=== PATIENT | male | born 1995 ===

== ENCOUNTER 2020-05-09 20:51 | Observation (INO) | payer BC ==
--- NOTE | 2020-05-09 21:13 | Event Note ---
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 Further treatment and workup at subsequent clinical providers discretion. Patient/guardian urged not to elope from the ED as their condition may be serious if not clinically assessed and managed. Initial orders include: labs,uds,ua,cxr
[2020-05-09 21:42] LABS: Basophils # (Auto) 0.1 K/mm3 (0.0-0.1); Basophils % (Auto) 0.4 % (0.0-1.8); Eosinophils # (Auto) 0.2 K/mm3 (0.0-0.4); Eosinophils % (Auto) 1.1 % (0.0-4.3); Hematocrit 47.4 % (35.5-45.6); Hemoglobin 15.9 gm/dl (11.8-15.2); Lymphocytes % (Auto) 13.7 % (13.4-35.0); Mean Corpuscular HGB Conc 34 % (32-34); Mean Corpuscular Volume 82 fl (84-94); Monocytes # (Auto) 0.6 K/mm3 (0.0-0.8); Monocytes % (Auto) 3.8 % (0.0-7.3); Platelet Count 363 K/mm3 (140-440); Red Blood Count 5.78 M/mm3 (3.65-5.03); Red Cell Distribution Width 14.4 % (13.2-15.2)
[2020-05-09 21:51] LABS: INR 1.02 (0.87-1.13)
[2020-05-09 21:52] LABS: Partial Thromboplastin Time 24.1 Sec. (24.2-36.6)
[2020-05-09 21:57] LABS: Alanine Aminotransferase 42 units/L (7-56); Albumin 4.6 g/dL (3.9-5); BUN/Creatinine Ratio 10; Blood Urea Nitrogen 9 mg/dL (9-20); Calcium 9.9 mg/dL (8.4-10.2); Hemolysis Index 16
[2020-05-09] MEDS ORDERED: SODIUM CHLORIDE 0.9% 1000 ML 1,000 ML IV ONE (22:52)
[2020-05-09] MEDS ORDERED: CEFEPIME/NS 2 GM/100 ML 2 GM/100 ML BAG IV ONE (22:53)
--- NOTE | 2020-05-09 22:58 | Emergency Department Report ---
ED Syncope HPI - General Chief Complaint: Altered Mental Status Stated Complaint: Syncope Time Seen by Provider: 05/09/20 22:51 Source: patient, EMS Exam Limitations: no limitations - History of Present Illness Initial Comments: Patient is a 24-year-old male that presents emergency room with complaints of syncopal episode versus a seizure activity. Patient states he was hanging out with some friends and he became unresponsive and the friend stated that he appeared to be shaking. Patient was brought in by EMS. Report received from EMS. Patient states he is having chest pain. Patient denies shortness of breath. Patient denies fever and chills. Patient denies head injury. Patient denies trauma. Patient states he is was a little confused when he initially arrived here. Patient has a history of Erlers Danlos syndrome, vascular type and the patient brought a letter from [facility]. Letter is from his [facility] physician/transportation dispatch manager. The letter recommends that if the patient has any type of chest pain or neurologic symptoms that angiogram studies be done of the chest and neck as well as a head CT to rule out any type of vascular compromise or rupture. Patient denies recent travel. Patient denies recent international travel. Patient denies exposure to the novel coronavirus. Patient denies sick contacts. Patient denies fever and chills. Patient denies cough. Patient denies diarrhea. Patient denies coming in contact with anybody with symptoms of the novel coronavirus. Timing/Prior Episodes: single episode today Precipitating Factors: Positive: lightheadedness, pain Context: standing Loss of Consciousness: brief (seconds) Current Symptoms: chest pain, headache, weakness. denies: blurred vision, diaphoresis, dizziness, injury, lightheadedness, loss of bladder control, loss of bowel control, motionless, nausea, pale - Related Data Allergies/Adverse Reactions: Allergies No Known Allergies Allergy (Unverified 05/09/20 22:11) Home Medications: Ambulatory Orders Ascorbic Acid [Vitamin C] 500 mg PO TID 05/10/20 Cholecalciferol Vit D3 [Vitamin D3 1,000 UNIT TAB] 1 tab PO QDAY 05/10/20 Citalopram [celeXA] 20 mg PO QDAY 05/10/20 Methadone [Dolophine] 1.5 tab PO BID 05/10/20 Metoclopramide [Reglan TAB] 1 tab PO TID 05/10/20 Mirtazapine [Remeron 15mg TAB] 15 mg PO QHS 05/10/20 PANTOPRAZOLE SODIUM (nf) [Protonix GRANULES] 40 mg PO BID 05/10/20 Pregabalin 150 mg PO BID 05/10/20 carvediloL [Coreg] 3.125 mg PO BID 05/10/20 ED Review of Systems ROS: Stated complaint: PUI/CLIVE Other details as noted in HPI Constitutional: malaise. denies: chills, fever Eyes: denies: eye pain, eye discharge, vision change ENT: denies: ear pain, throat pain Respiratory: denies: cough, shortness of breath, wheezing Cardiovascular: chest pain. denies: palpitations Endocrine: no symptoms reported Gastrointestinal: denies: abdominal pain, nausea, diarrhea Genitourinary: denies: urgency, dysuria Musculoskeletal: denies: back pain, joint swelling, arthralgia Skin: denies: rash, lesions Neurological: as per HPI, headache, weakness, confusion. denies: paresthesias Psychiatric: denies: anxiety, depression Hematological/Lymphatic: denies: easy bleeding, easy bruising ED Past Medical Hx - Past Medical History Previous Medical History?: Yes Additional medical history: EDS, colostomy - Surgical History Past Surgical History?: Yes Additional Surgical History: ACL repair - Family History Family history: no significant - Social History Smoking Status: Former Smoker Substance Use Type: Alcohol, Marijuana - Medications Home Medications: Home Medications Medication Instructions Recorded Confirmed Last Taken Type Ascorbic Acid [Vitamin C] 500 mg PO TID 05/10/20 05/10/20 Unknown History Cholecalciferol Vit D3 [Vitamin D3 1 tab PO QDAY 05/10/20 05/10/20 Unknown H istory 1,000 UNIT TAB] Citalopram [celeXA] 20 mg PO QDAY 05/10/20 05/10/20 Unknown History Methadone [Dolophine] 1.5 tab PO BID 05/10/20 05/10/20 Unknown History Metoclopramide [Reglan TAB] 1 tab PO TID 05/10/20 05/10/20 Unknown History Mirtazapine [Remeron 15mg TAB] 15 mg PO QHS 05/10/20 05/10/20 Unknown History PANTOPRAZOLE SODIUM (nf) [Protonix 40 mg PO BID 05/10/20 05/10/20 Unknown History GRANULES] Pregabalin 150 mg PO BID 05/10/20 05/10/20 Unknown History carvediloL [Coreg] 3.125 mg PO BID 05/10/20 05/10/20 Unknown History ED Physical Exam - General Limitations: No Limitations General appearance: alert, in no apparent distress - Head Head exam: Present: atraumatic, normocephalic - Eye Eye exam: Present: normal appearance, PERRL Pupils: Present: normal accommodation - ENT ENT exam: Present: mucous membranes moist - Neck Neck exam: Present: normal inspection - Respiratory Respiratory exam: Present: normal lung sounds bilaterally. Absent: respiratory distress - Cardiovascular Cardiovascular Exam: Present: regular rate, normal rhythm. Absent: systolic murmur, diastolic murmur, rubs, gallop - GI/Abdominal GI/Abdominal exam: Present: soft, normal bowel sounds. Absent: distended, tenderness, guarding - Rectal Rectal exam: Present: deferred - Extremities Exam Extremities exam: Present: normal inspection - Back Exam Back exam: Present: normal inspection - Neurological Exam Neurological exam: Present: alert, oriented X3 - Psychiatric Psychiatric exam: Present: normal affect, normal mood - Skin Skin exam: Present: warm, dry, intact, normal color. Absent: rash ED Course Vital Signs 05/09/20 05/09/20 05/09/20 21:08 23:15 23:16 Temperature 97.9 F 98.3 F Pulse Rate 113 H 104 H Respiratory 22 16 Rate Blood Pressure 110/76 Blood Pressure 115/67 [Left] O2 Sat by Pulse 94 100 98 Oximetry 05/10/20 05/10/20 05/10/20 00:35 01:35 02:04 Temperature Pulse Rate Respiratory 16 16 16 Rate Blood Pressure Blood Pressure [Left] O2 Sat by Pulse Oximetry 05/10/20 05/10/20 05/10/20 02:07 03:04 03:29 Temperature 98.1 F Pulse Rate 102 H Respiratory 19 16 16 Rate Blood Pressure Blood Pressure 115/77 [Left] O2 Sat by Pulse 100 Oximetry 05/10/20 05/10/20 03:59 04:43 Temperature 97.9 F Pulse Rate 96 H Respiratory 16 16 Rate Blood Pressure Blood Pressure 107/98 [Left] O2 Sat by Pulse 100 Oximetry - Reevaluation(s) Reevaluation #1: Patient complaining of chest pain. Patient will given 50 mcg fentanyl. 05/10/20 00:21 Reevaluation #2: Patient received a second dose of fentanyl and he states his pain is better. I discussed all results with patient. I discussed plan of care with patient. Patient agrees with plan of care but states he would like to be transferred to [facility] where he is had all of his care for his EDS. I will consult [facility]. 05/10/20 02:21 Reevaluation #3: I discussed all results with patient. I discussed plan of care with patient. Patient agrees with plan of care and admission since [facility] is unable to accept the patient at this time.. Patient to be admitted to the hospitalist service. 05/10/20 03:19 Reevaluation #4: Patient complaining of nausea and vomiting. Patient already given 4 mg Zofran per patient was given another 4 mg of Zofran and 25 mg of Phenergan [place] 05/10/20 04:18 Reevaluation #5: Patient resting comfortably in bed. 05/10/20 05:18 - Consultations Consultation #1: I discussed the case with [facility]. 05/10/20 02:29 [facility] returned our call and states I do not have any beds for possible COVID or PUI patient. 05/10/20 03:19 Consultation #2: Infectious disease consult placed. 05/10/20 03:22 Consultation #3: Hospitalist consulted for admission. Hospitalist to admit patient. 05/10/20 05:05 ED Medical Decision Making - Lab Data Result diagrams: 05/09/20 21:19 05/09/20 21:19 - EKG Data -: EKG Interpreted by [facility] EKG shows normal: sinus rhythm, axis, intervals, QRS complexes, ST-T waves Rate: tachycardia - Radiology Data Radiology results: report reviewed CT head/brain wo con INDICATION: Altered Mental Status. TECHNIQUE: Routine CT head without contrast. All CT scans at this location are performed using CT dose reduction for ALARA by means of automated exposure control. COMPARISON: None. FINDINGS: BRAIN / INTRACRANIAL CONTENTS: No acute hemorrhage, mass effect, midline shift, or hydrocephalus. No appreciable acute large territorial or lacunar infarct. No chronic infarct or focal atrophy. Normal brain volume and ventricular/sulcal size for age. ORBITS: No significant abnormality of visualized orbits. SINUSES / MASTOIDS: No significant abnormality of visualized sinuses and mastoid air cells. ADDITIONAL FINDINGS: None. IMPRESSION: 1. No acute intracranial abnormality. CHEST 1 VIEW INDICATION / CLINICAL INFORMATION: AMS. COMPARISON: None available. FINDINGS: SUPPORT DEVICES: None. HEART / MEDIASTINUM: No significant abnormality. LUNGS / PLEURA: There is a 6.7 cm masslike density in the right lung base of uncertain etiology. Small right pleural effusion is noted. Additionally, there is parenchymal disease throughout both upper lobes. No pneumothorax. ADDITIONAL FINDINGS: No significant additional findings. IMPRESSION: 1. Large mass projecting within the right inferior lung with associated small right pleural effusion. Although this could represent some type of pericardial mass or cyst, the exact etiology is unclear and further evaluation with chest CT scan should be performed. 2. Patchy bilateral upper lobe pulmonary opacities of uncertain etiology but certainly viral pneumonia is within the differential. CTA ABDOMEN AND PELVIS WITH IV CONTRAST INDICATION / CLINICAL INFORMATION: Syncope, chest pains. EDS. TECHNIQUE: Axial CT images were obtained through the abdomen and pelvis before and after after injection of 100 mL IV contrast. 3 plane MIP / 3D reconstructions were produced. All CT scans at this location are performed using CT dose reduction for ALARA by means of automated exposure control. COMPARISON: None available. FINDINGS: CT abdomen shows no acute finding within the liver, spleen, pancreas, kidneys, or adrenal glands. No gallbladder pathology identified. No biliary dilatation. CT pelvis demonstrates normal appearance of the appendix. No pelvic mass, free fluid, or focal inflammatory change noted. Left lower quadrant colostomy is noted. GI tract is grossly unremarkable otherwise. Aorta: No significant abnormality. Renal arteries: No significant abnormality. Celiac artery: No significant abnormality. Superior Mesenteric Artery: No significant abnormality. Inferior mesenteric artery: No significant abnormality. Right Iliac Arteries: No significant abnormality.. Left Iliac Arteries: No significant abnormality.. Additional Findings: None. Skeletal Structures: No significant abnormality. IMPRESSION: 1. No acute finding within the abdomen or pelvis. 2. Normal CTA abdomen/pelvis. CTA CHEST WITH IV CONTRAST INDICATION / CLINICAL INFORMATION: Syncope, chest pains. EDS. TECHNIQUE: Axial CT images were obtained through the chest after injection of 100 mL IV contrast. 3 plane MIP and/or 3D reconstructions were produced. All CT scans at this location are performed using CT dose reduction for ALARA by means of automated exposure control. COMPARISON: None available. FINDINGS: PULMONARY ARTERIES: No pulmonary emboli. THORACIC AORTA: No significant abnormality. HEART: No significant abnormality. CORONARY ARTERIES: No significant calcification. PLEURA: Small bilateral pleural effusions are present, slightly larger on the right. No pneumothorax. LYMPH NODES: No significant adenopathy. LUNGS: There is a fluid-filled cystic mass in the right lower lobe measuring approximately 7 cm.. The mass is benign and may represent bronchogenic cyst, or loculated effusion. Additionally, pulmonary opacities are present scattered throughout both upper lobes and to a lesser degree, both lower lobes. The appearance is certainly worrisome for multifocal viral pneumonia. ADDITIONAL FINDINGS: None. UPPER ABDOMEN: No acute findings. SKELETAL STRUCTURES: No significant osseous abnormality. IMPRESSION: 1. No CT evidence for pulmonary embolism. 2. Multiple small bilateral pulmonary opacities most likely representing multifocal viral pneumonia. 3. 7 cm cystic mass in the right lower lobe possibly representing either loculated effusion or bronchogenic cyst. 3. Small bilateral pleural effusions. - Medical Decision Making Patient is a 24-year-old male that presents emergency room with complaints of chest pain, syncope versus seizure activity. Patient has a history of EDS and brought a letter from [facility]. The letter states that if the patient presents with neurologic symptoms or complaints or pain in the abdomen or chest that a CT angiography needs to be done to rule out any type of vascular compromise. Patient had labs done which were essentially unremarkable except for elevated WBC, lactic acidosis, elevated troponin. Patient had CTA of the chest and abdomen which were negative for acute findings. Patient CT of the chest did show bilateral viral appearing pneumonia. Patient's most likely has COVID-19. Infectious disease consulted and COVID-19 protocol ordered. Personal protective equipment in accordance with CDC and hospital pull through use during every interaction with patient. Patient's head CT was negative. Patient's EKG is negative. Patient complained of severe chest pain throughout his stay in the ER. Patient also had bouts of nausea and vomiting. Patient was given antiemetics which which improved his nausea. - Differential Diagnosis Headache, seizure activity, syncope, chest pain, PE, vascular compromise Critical Care Time: Yes Critical care time in (mins) excluding proc time.: 80 Critical care attestation.: If time is entered above; I have spent that time in minutes in the direct care of this critically ill patient, excluding procedure time. Critical Care Time: 80 minutes ED Disposition Clinical Impression: Seizure-like activity, EDS (Vincelos syndrome), Lactic acid acidosis, Elevated troponin I level, Viral pneumonia, Suspected COVID-19 virus infection Chest pain Qualifiers: Chest pain type: unspecified Qualified Code(s): R07.9 - Chest pain, unspecified Headache Qualifiers: Headache type: unspecified Headache chronicity pattern: acute headache Intractability: not intractable Qualified Code(s): R51 - Headache Syncope Qualifiers: Syncope type: unspecified Qualified Code(s): R55 - Syncope and collapse Pneumonia Qualifiers: Pneumonia type: due to unspecified organism Laterality: bilateral Lung location: unspecified part of lung Qualified Code(s): J18.9 - Pneumonia, unspecified organism Disposition: -09 OP ADMIT IP TO THIS HOSP Is pt being admited?: Yes Does the pt Need Aspirin: No Condition: Critical Time of Disposition: 05:05
--- NOTE | 2020-05-09 22:58 | Cat Scan Report ---
CT head/brain wo con INDICATION: Altered Mental Status. TECHNIQUE: Routine CT head without contrast. All CT scans at this location are performed using CT dos e reduction for ALARA by means of automated exposure control. COMPARISON: None. FINDINGS: BRAIN / INTRACRANIAL CONTENTS: No acute hemorrhage, mass effect, midline shift, or hydrocephalus. No appreciable acute large territorial or lacunar infarct. No chronic infarct or focal atrophy. Normal b rain volume and ventricular/sulcal size for age. ORBITS: No significant abnormality of visualized orbits. SINUSES / MASTOIDS: No significant abnormality of visualized sinuses and mastoid air cells. ADDITIONAL FINDINGS: None. IMPRESSION: 1. No acute intracranial abnormality. Signer Name: Jailyn Lewis MD Signed: 05/09/2020 10:53 PM Workstation Name: [id number]
--- NOTE | 2020-05-09 23:19 | XRay Report ---
CHEST 1 VIEW INDICATION / CLINICAL INFORMATION: AMS. COMPARISON: None available. FINDINGS: SUPPORT DEVICES: None. HEART / MEDIASTINUM: No significant abnormality. LUNGS / PLEURA: There is a 6.7 cm masslike density in the right lung base of uncertain etiology. Smal l right pleural effusion is noted. Additionally, there is parenchymal disease throughout both upper l obes. No pneumothorax. ADDITIONAL FINDINGS: No significant additional findings. IMPRESSION: 1. Large mass projecting within the right inferior lung with associated small right pleural effusion. Although this could represent some type of pericardial mass or cyst, the exact etiology is unclear a nd further evaluation with chest CT scan should be performed. 2. Patchy bilateral upper lobe pulmonary opacities of uncertain etiology but certainly viral pneumoni a is within the differential. Signer Name: Nu Millan MD Signed: 05/09/2020 11:14 PM Workstation Name: [id number]
[2020-05-09 23:42] LABS: Creatine Kinase MB 9.2 ng/mL (0.0-4.0)
[2020-05-10] MEDS ORDERED: fentaNYL 100 MCG/2 ML INJ IV ONE ×3 (00:18→05:07)
[2020-05-10 00:53] LABS: Bilirubin,Urine NEG (Negative); Blood,Urine SM (Negative); Color,Urine Straw (Yellow); Mucus,Urine FEW /HPF; Urobilinogen,Urine < 2.0 mg/dL (<2.0)
[2020-05-10 01:02] LABS: Amphetamine Screen,Urine PRESUMPTIVE NEGATIVE; Benzodiazepines Screen,Urine PRESUMPTIVE NEGATIVE; Cannabinoid Screen,Urine PRESUMPTIVE NEGATIVE; Cocaine Screen,Urine PRESUMPTIVE NEGATIVE; Methadone Screen,Urine PRESUMPTIVE POSITIVE; Opiate Screen,Urine PRESUMPTIVE NEGATIVE
--- NOTE | 2020-05-10 01:53 | Cat Scan Report ---
CTA CHEST WITH IV CONTRAST INDICATION / CLINICAL INFORMATION: Syncope, chest pains. EDS. TECHNIQUE: Axial CT images were obtained through the chest after injection of 100 mL IV contrast. 3 plane MIP an d/or 3D reconstructions were produced. All CT scans at this location are performed using CT dose redu ction for ALARA by means of automated exposure control. COMPARISON: None available. FINDINGS: PULMONARY ARTERIES: No pulmonary emboli. THORACIC AORTA: No significant abnormality. HEART: No significant abnormality. CORONARY ARTERIES: No significant calcification. PLEURA: Small bilateral pleural effusions are present, slightly larger on the right. No pneumothorax. LYMPH NODES: No significant adenopathy. LUNGS: There is a fluid-filled cystic mass in the right lower lobe measuring approximately 7 cm.. The mass is benign and may represent bronchogenic cyst, or loculated effusion. Additionally, pulmonary o pacities are present scattered throughout both upper lobes and to a lesser degree, both lower lobes. The appearance is certainly worrisome for multifocal viral pneumonia. ADDITIONAL FINDINGS: None. UPPER ABDOMEN: No acute findings. SKELETAL STRUCTURES: No significant osseous abnormality. IMPRESSION: 1. No CT evidence for pulmonary embolism. 2. Multiple small bilateral pulmonary opacities most likely representing multifocal viral pneumonia. 3. 7 cm cystic mass in the right lower lobe possibly representing either loculated effusion or bronch ogenic cyst. 3. Small bilateral pleural effusions. Signer Name: Nu Millan MD Signed: 05/10/2020 1:48 AM Workstation Name: [id number]
--- NOTE | 2020-05-10 01:57 | Cat Scan Report ---
CTA ABDOMEN AND PELVIS WITH IV CONTRAST INDICATION / CLINICAL INFORMATION: Syncope, chest pains. EDS. TECHNIQUE: Axial CT images were obtained through the abdomen and pelvis before and after after injection of 100 mL IV contrast. 3 plane MIP / 3D reconstructions were produced. All CT scans at this location are per formed using CT dose reduction for ALARA by means of automated exposure control. COMPARISON: None available. FINDINGS: CT abdomen shows no acute finding within the liver, spleen, pancreas, kidneys, or adrenal glands. No gallbladder pathology identified. No biliary dilatation. CT pelvis demonstrates normal appearance of the appendix. No pelvic mass, free fluid, or focal inflam matory change noted. Left lower quadrant colostomy is noted. GI tract is grossly unremarkable otherwi se. Aorta: No significant abnormality. Renal arteries: No significant abnormality. Celiac artery: No significant abnormality. Superior Mesenteric Artery: No significant abnormality. Inferior mesenteric artery: No significant abnormality. Right Iliac Arteries: No significant abnormality.. Left Iliac Arteries: No significant abnormality.. Additional Findings: None. Skeletal Structures: No significant abnormality. IMPRESSION: 1. No acute finding within the abdomen or pelvis. 2. Normal CTA abdomen/pelvis. Signer Name: Nu Millan MD Signed: 05/10/2020 1:53 AM Workstation Name: [id number]
[2020-05-10 02:44] LABS: Chol/HDL Ratio 5.5 %
[2020-05-10] MEDS ORDERED: ONDANSETRON 4 MG/2 ML INJ ONE (02:55)
[2020-05-10] MEDS ORDERED: ONDANSETRON 4 MG/2 ML INJ IV ONE ×2 (03:01→04:20)
[2020-05-10] MEDS ORDERED: AZITHROMYCIN 500 MG in SODIUM CHLORIDE 0.9% 250ML 250 ML IV ONE (03:20)
[2020-05-10] MEDS ORDERED: dexAMETHasone 4 MG/ML VIAL IV ONE (03:20)
[2020-05-10] MEDS ORDERED: SODIUM CHLORIDE 0.9% 1000 ML 1,000 ML IV ONE (03:20)
[2020-05-10] MEDS ORDERED: HYDROmorphone 1 MG/1 ML INJ IV ONE (03:21)
[2020-05-10] MEDS ORDERED: PROMETHAZINE 25 MG RECT SUPP PR ONE ×2 (04:17→04:19)
[2020-05-10] MEDS ORDERED: fentaNYL 100 MCG/2 ML INJ ONE (05:05)
[2020-05-10] MEDS ORDERED: ACETAMINOPHEN 325 MG TAB PO PRN (08:00)
--- NOTE | 2020-05-10 09:06 | History and Physical Report ---
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 Of note patient admits to current weekly EtOH use (liquor 1-2 times per week), being a former smoker (1 to 2 cigarettes/day x8 years), and former daily marijuana and vape user. Patient states he was hanging out with some friends and he became unresponsive and the friend stated he appeared to be shaking. However the patient states these episodes of unresponsiveness and fainting have been ongoing for about 2 years. Patient states he has bilateral chest discomfort (upper abdomen, lower thoracic region) with inspiration described as a pressure (left 7 out of 10, right 4 out of 10). Patient denies any recent chills/fevers, shortness of breath, weight loss, chron ic headache, palpitations, or nausea/vomiting/diarrhea. He states he had one episode of hemoptysis last night. Patient denies any recent international travel, known exposure to COVID-19, or any recent sick contacts. He does state that he recently traveled to [place]. Work-up in the emergency department included a CT head, chest x-ray, CTA abd/ pelvis, and CTA chest. His CTH was negative, CXR showed a large mass in the right inferior lung, small right pleural effusion, bilateral patchy upper lobe pulmonary opacities, CTA abdomen/pelvis was negative, CTA chest showed bilateral pleural effusion (right> left), fluid-filled cyst in the right lower lobe measuring 7cm (benign, possible bronchogenic cyst or loculated effusion) and multiple small bilateral pulmonary opacities. His lab work revealed leukocytosis (14.8), lactic acidosis (2.6), elevated troponin (0.85), elevated d-dimer (399), elevated LDH (229), and CRP 1. Urinalysis and UDS have been negative. He will be admitted to the hospitalist service for syncope work-up, COVID PUI, and possible new onset seizures. Infectious disease, neurology have been consulted. 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 Past History Past Medical History: DVT, GERD, heart failure, pulmonary embolism, other (VILI (2019), Colon perf (2019) s/p resection and left colostomy, bilateral carotid pseudoaneurysm, a common central aneurysm, depression,anxiety, cholecystitis (2019)) Past Surgical History: Other (ACL repair, colon resection and colostomy creation) Social history: single, smoking, alcohol abuse, full code. denies: prescription drug abuse, IV drug use Medications and Allergies Allergies Allergy/AdvReac Type Severity Reaction Status Date / Time No Known Allergies Allergy Unverified 05/09/20 22:11 Home Medications Medication Instructions Recorded Confirmed Last Taken Type Ascorbic Acid [Vitamin C] 500 mg PO TID 05/10/20 05/10/20 Unknown History Cholecalciferol Vit D3 [Vitamin D3 1 tab PO QDAY 05/10/20 05/10/20 Unknown History 1,000 UNIT TAB] Citalopram [celeXA] 20 mg PO QDAY 05/10/20 05/10/20 Unknown History Methadone [Dolophine] 1.5 tab PO BID 05/10/20 05/10/20 Unknown History Metoclopramide [Reglan TAB] 1 tab PO TID 05/10/20 05/10/20 Unknown History Mirtazapine [Remeron 15mg TAB] 15 mg PO QHS 05/10/20 05/10/20 Unknown History PANTOPRAZOLE SODIUM (nf) [Protonix 40 mg PO BID 05/10/20 05/10/20 Unknown History GRANULES] Pregabalin 150 mg PO BID 05/10/20 05/10/20 Unknown History carvediloL [Coreg] 3.125 mg PO BID 05/10/20 05/10/20 Unknown History Active Meds: Active Medications Acetaminophen (Tylenol) 650 mg PO Q4H PRN PRN Reason: Pain MILD(1-3)/Fever >100.5/NICOLE Dexamethasone (Decadron) 6 mg PO DAILY COUNTS INCLUDE 234 BEDS AT THE [facility] Stop: 05/21/20 09:59 Docusate Sodium (Colace) 100 mg PO BID COUNTS INCLUDE 234 BEDS AT THE [facility] Enoxaparin Sodium (Enoxaparin) 40 mg SUB-Q QDAY@2200 COUNTS INCLUDE 234 BEDS AT THE [facility] Azithromycin 500 mg/ Sodium (Chloride) 250 mls @ 250 mls/hr IV Q24H COUNTS INCLUDE 234 BEDS AT THE [facility]; Protocol Ceftriaxone Sodium (Rocephin/Ns 1 Gm/50 Ml) 1 gm in 50 mls @ 100 mls/hr IV Q24HR COUNTS INCLUDE 234 BEDS AT THE [facility]; Protocol Stop: 05/15/20 09:59 Ondansetron HCl (Zofran) 4 mg IV Q8H PRN PRN Reason: Nausea And Vomiting Oxycodone/Acetaminophen (Percocet 5/325) 1 tab PO Q6H PRN PRN Reason: Pain, Moderate (4-6) Senna (Senokot) 8.6 mg PO Q12HR COUNTS INCLUDE 234 BEDS AT THE [facility] Sodium Chloride (Sodium Chloride Flush Syringe 10 Ml) 10 ml IV BID COUNTS INCLUDE 234 BEDS AT THE [facility] Sodium Chloride (Sodium Chloride Flush Syringe 10 Ml) 10 ml IV PRN PRN PRN Reason: LINE FLUSH Review of Systems Constitutional: sweats, no weight loss, no weight gain, no fever, no chills, no anorexia, no fatigue, no weakness, no lethargy, no chronic headaches Ears, nose, mouth and throat: epistaxis, no ear pain, no ear discharge, no tinnitis, no decreased hearing, no nose pain, no nasal congestion, no nasal discharge, no sinus pressure, no sinus pain, no sore throat, no headache, no vertigo, no neck fullness/pressure Cardiovascular: syncope, lightheadedness, no chest pain, no orthopnea, no palpitations, no edema, no shortness of breath, no dyspnea on exertion, no high blood pressure, no leg edema Respiratory: pleurisy, no cough, no cough with sputum, no excessive sputum, no hemoptysis, no shortness of breath, no dyspnea on exertion Gastrointestinal: no abdominal pain, no nausea, no vomiting, no diarrhea Genitourinary Male: no dysuria, no hematuria, no discharge Rectal: no pain, no incontinence, no bleeding, no itching Musculoskeletal: leg numbness/tingling (left, residual from DVT), no neck stiffness, no neck pain, no shooting arm pain, no morning stiffness, no muscle weakness Integumentary: no rash, no pruritis, no redness, no sores Neurological: tingling (left leg), syncope, no head injury, no transient paralysis, no paralysis, no weakness, no seizures, no vertigo, no migraines, no convulsions, no confusion, no memory loss, no balance difficulties Psychiatric: anxiety, depression Endocrine: no cold intolerance, no heat intolerance, no polyphagia, no excessive thirst, no polydipsia, no polyuria, no nocturia, no weight change, no palpatati ons, no high blood sugars Hematologic/Lymphatic: no easy bruising, no easy bleeding Allergic/Immunologic: no urticaria, no wheezing, no anaphylaxis Exam - Constitutional Vitals: Temp Pulse Resp BP Pulse Ox 97.9 F 96 H 16 107/98 100 05/10/20 04:43 05/10/20 04:43 05/10/20 05:08 05/10/20 04:43 05/10/20 04:43 General appearance: Present: no acute distress - EENT Eyes: Present: PERRL, EOM intact ENT: hearing intact, clear oral mucosa, dentition normal - Neck Neck: Present: supple, normal ROM - Respiratory Respiratory effort: normal Respiratory: bilateral: CTA - Cardiovascular Rhythm: regular Heart Sounds: Present: S1 & S2. Absent: systolic murmur, diastolic murmur - Extremities Extremities: no ischemia, pulses intact, pulses symmetrical, No edema, normal t emperature, normal color, Full ROM Extremity abnormal: pulses diminished Peripheral Pulses: abnormal (dimished B LE pulses (dp/pt)) - Abdominal General gastrointestinal: Present: soft, non-tender, non-distended, normal bowel sounds, other (Left colostomy (unable to visualize actual stoma is covered with ostomy bag)) - Integumentary Integumentary: Present: clear, warm, dry - Musculoskeletal Musculoskeletal: strength equal bilaterally - Psychiatric Psychiatric: appropriate mood/affect, cooperative - Neurologic Neurologic: CNII-XII intact, no focal deficits, moves all extremities HEART Score - HEART Score EKG: Normal Age: < 45 Risk factors: 1-2 risk factors Troponin: Troponin T 0.055 ng/mL (0.00-0.029) H D 05/10/20 03:01 Troponin: 1-3x normal limit Results - Labs CBC & Chem 7: 05/09/20 21:19 05/10/20 04:36 Labs: Laboratory Last Values WBC 14.8 K/mm3 (4.5-11.0) H 05/09/20 21:19 RBC 5.78 M/mm3 (3.65-5.03) H 05/09/20 21:19 Hgb 15.9 gm/dl (11.8-15.2) H 05/09/20 21:19 Hct 47.4 % (35.5-45.6) H 05/09/20 21:19 MCV 82 fl (84-94) L 05/09/20 21:19 MCH 28 pg (28-32) 05/09/20 21:19 MCHC 34 % (32-34) 05/09/20 21:19 RDW 14.4 % (13.2-15.2) 05/09/20 21:19 Plt Count 363 K/mm3 (140-440) 05/09/20 21:19 Lymph % (Auto) 13.7 % (13.4-35.0) 05/09/20 21:19 Chase % (Auto) 3.8 % (0.0-7.3) 05/09/20 21:19 Eos % (Auto) 1.1 % (0.0-4.3) 05/09/20 21:19 Baso % (Auto) 0.4 % (0.0-1.8) 05/09/20 21:19 Lymph # 2.0 K/mm3 (1.2-5.4) 05/09/20 21:19 Chase # 0.6 K/mm3 (0.0-0.8) 05/09/20 21:19 Eos # 0.2 K/mm3 (0.0-0.4) 05/09/20 21:19 Baso # 0.1 K/mm3 (0.0-0.1) 05/09/20 21:19 Seg Neutrophils % 81.0 % (40.0-70.0) H 05/09/20 21:19 Seg Neutrophils # 12.0 K/mm3 (1.8-7.7) H 05/09/20 21:19 PT 13.6 Sec. (12.2-14.9) 05/09/20 21:19 INR 1.02 (0.87-1.13) 05/09/20 21:19 APTT 24.1 Sec. (24.2-36.6) L 05/09/20 21:19 D-Dimer 399.75 ng/mlDDU (0-234) H 05/10/20 04:36 Sodium 138 mmol/L (137-145) 05/09/20 21:19 Potassium 4.4 mmol/L (3.6-5.0) 05/09/20 21:19 Chloride 101.1 mmol/L (98-107) 05/09/20 21:19 Carbon Dioxide 20 mmol/L (22-30) L 05/09/20 21:19 Anion Gap 21 mmol/L 05/09/20 21:19 BUN 9 mg/dL (9-20) 05/09/20 21:19 Creatinine 0.9 mg/dL (0.8-1.3) 05/09/20 21:19 Estimated GFR > 60 ml/min 05/09/20 21:19 BUN/Creatinine Ratio 10 % 05/09/20 21:19 Glucose 118 mg/dL (75-100) H 05/10/20 04:36 Lactic Acid 1.80 mmol/L (0.7-2.0) 05/10/20 01:14 Calcium 9.9 mg/dL (8.4-10.2) 05/09/20 21:19 Ferritin 96.9 ng/mL (30.0-300.0) 05/10/20 04:36 Total Bilirubin 0.70 mg/dL (0.1-1.2) 05/09/20 21:19 AST 44 units/L (5-40) H 05/09/20 21:19 ALT 42 units/L (7-56) 05/09/20 21:19 Alkaline Phosphatase 94 units/L (35-129) 05/09/20 21:19 Lactate Dehydrogenase 229 units/L (91-180) H 05/10/20 04:36 Total Creatine Kinase 687 units/L (55-170) H 05/09/20 23:07 CK-MB (CK-2) 9.2 ng/mL (0.0-4.0) H 05/09/20 23:07 CK-MB (CK-2) Rel Index 1.3 (0-4) 05/09/20 23:07 Troponin T 0.055 ng/mL (0.00-0.029) H D 05/10/20 03:01 C-Reactive Protein 1.00 mg/dL (0.00-1.30) 05/10/20 04:36 Total Protein 7.9 g/dL (6.3-8.2) 05/09/20 21:19 Albumin 4.6 g/dL (3.9-5) 05/09/20 21:19 Albumin/Globulin Ratio 1.4 % 05/09/20 21:19 Triglycerides 310 mg/dL (2-149) H 05/09/20 23:07 Cholesterol 176 mg/dL (50-199) 05/09/20 23:07 LDL Cholesterol Direct 102 mg/dL (50-130) 05/09/20 23:07 HDL Cholesterol 32 mg/dL (40-59) L 05/09/20 23:07 Cholesterol/HDL Ratio 5.50 % 05/09/20 23:07 Urine Color Straw (Yellow) 05/09/20 Unknown Urine Turbidity Clear (Clear) 05/09/20 Unknown Urine pH 6.0 (5.0-7.0) 05/09/20 Unknown Ur Specific Plush 1.015 (1.003-1.030) 05/09/20 Unknown Urine Protein 30 mg/dl mg/dL (Negative) 05/09/20 Unknown Urine Glucose (UA) Neg mg/dL (Negative) 05/09/20 Unknown Urine Ketones Neg mg/dL (Negative) 05/09/20 Unknown Urine Blood Sm (Negative) 05/09/20 Unknown Urine Nitrite Neg (Negative) 05/09/20 Unknown Urine Bilirubin Neg (Negative) 05/09/20 Unknown Urine Urobilinogen < 2.0 mg/dL (<2.0) 05/09/20 Unknown Ur Leukocyte Esterase Neg (Negative) 05/09/20 Unknown Urine WBC (Auto) 1.0 /HPF (0.0-6.0) 05/09/20 Unknown Urine RBC (Auto) 1.0 /HPF (0.0-6.0) 05/09/20 Unknown Urine Mucus Few /HPF 05/09/20 Unknown Urine Opiates Screen Presumptive negative 05/09/20 Unknown Urine Methadone Screen Presumptive positive 05/09/20 Unknown Ur Barbiturates Screen Presumptive negative 05/09/20 Unknown Ur Phencyclidine Scrn Presumptive negative 05/09/20 Unknown Ur Amphetamines Screen Presumptive negative 05/09/20 Unknown U Benzodiazepines Scrn Presumptive negative 05/09/20 Unknown Urine Cocaine Screen Presumptive negative 05/09/20 Unknown U Marijuana (THC) Screen Presumptive negative 05/09/20 Unknown Drugs of Abuse Note Disclamer 05/09/20 Unknown Plasma/Serum Alcohol < 0.01 % (0-0.07) 05/09/20 21:19 Black/IV: IV Catheter Type [Left Hand] INT / Saline Lock IV Catheter Type [Right INT / Saline Lock Antecubital] Assessment and Plan VTE prophylaxis?: Chemical, Mechanical Plan of care discussed with patient/family: Yes - Patient Problems (1) Suspected COVID-19 virus infection Current Visit: Yes Status: Acute Plan to address problem: -COVID PCR pending -Contact/droplet precaution -Dexamethasone PO -IV antibiotics (azithromycin, Rocephin) -Lovenox HS -Infectious disease consult -Pulmonary hygiene -Supplemental oxygenation as needed -OOB 3 times daily -Continuous SPO2 monitor -Prone to sleep as needed (2) Pneumonia Current Visit: Yes Status: Acute Qualifiers: Pneumonia type: due to unspecified organism Laterality: bilateral Lung location: unspecified part of lung Qualified Code(s): J18.9 - Pneumonia, unspecified organism Plan to address problem: -IV antibiotic -Infectious disease consult -Pulmonary hygiene -Supplemental oxygenation as needed (3) Syncope Current Visit: Yes Status: Acute Qualifiers: Syncope type: unspecified Qualified Code(s): R55 - Syncope and collapse Plan to address problem: -Bilateral carotid ultrasound pending -Echocardiogram pending -Orthostatic vital signs -Fall precautions (4) Seizure-like activity Current Visit: Yes Status: Acute Plan to address problem: -Neurology consult -Seizure precaution -Ativan as needed -Supportive care (5) Elevated troponin I level Current Visit: Yes Status: Acute Plan to address problem: -Serial cardiac enzymes -EKG -Echocardiogram pending -Supportive care (6) EDS (Augustine-Danlos syndrome) Current Visit: Yes Status: Acute Plan to address problem: -Supportive care -Restarted home medication (7) GERD (gastroesophageal reflux disease) Current Visit: Yes Status: Acute Plan to address problem: -Restarted home medication (8) Depression Current Visit: Yes Status: Acute Plan to address problem: -Restarted home medication (9) Full code status Current Visit: Yes Status: Acute (10) DVT prophylaxis Current Visit: Yes Status: Acute Plan to address problem: -S[facility]
[2020-05-10] MEDS ORDERED: LORazepam 2 MG/ML VIAL IV PRN (09:12)
[2020-05-10] MEDS: SENNOSIDES 8.6 MG TAB PO SCH ×2 (09:42→22:33)
[2020-05-10] MEDS: DOCUSATE SODIUM 100 MG CAP PO SCH ×2 (09:42→22:32)
[2020-05-10] MEDS: oxyCODONE /ACETAMINOPHEN 5-325MG TAB PO PRN ×2 (09:42→22:33)
[2020-05-10] MEDS ORDERED: cefTRIAXone/NS 1 GM/50 ML 1 GM/50 ML BAG IV SCH (10:00)
[2020-05-10] MEDS: CITALOPRAM 20 MG TAB PO SCH (11:59)
[2020-05-10] MEDS: PREGABALIN 75 MG CAP PO SCH ×2 (11:59→22:32)
[2020-05-10] MEDS: PANTOPRAZOLE 40 MG TAB PO SCH ×2 (12:00→22:32)
[2020-05-10] MEDS: carvediloL 3.125 MG TAB PO SCH ×2 (12:00→22:32)
--- NOTE | 2020-05-10 14:03 | Vascular Lab Report ---
BILATERAL CAROTID DOPPLER ULTRASOUND INDICATION : Syncope TECHNIQUE: Grayscale and color Doppler imaging performed through the neck. COMPARISON: None FINDINGS: Right: There is no significant atherosclerotic disease. Peak systolic velocity in the CCA is 116 cm /s with end-diastolic velocity of 33 cm/s. Peak systolic velocity in the proximal ICA is 86 cm/s with end-diastolic velocity of 36 cm/s. ICA to CCA ratio is less than 2. There is antegrade flow in the ECA and the vertebral artery. Left: There is no significant atherosclerotic disease. Peak systolic velocity in the CCA is 109 cm/s with end-diastolic velocity of 31 cm/s. Peak systolic velocity in the proximal ICA is 76 cm/s with en d-diastolic velocity of 23 cm/s. ICA to CCA ratio is less than 2. There is antegrade flow in the ECA and the vertebral artery. IMPRESSION: No hemodynamically significant stenosis by NASCET criteria. Doppler velocities indicate l ess than 50% luminal narrowing bilaterally Signer Name: Osiel Mast Jr, MD Signed: 05/10/2020 1:58 PM Workstation Name: [id number]
--- NOTE | 2020-05-10 15:23 | Consultation ---
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 He presented yesterday after an episode of loss of consciousness. Patient was with friends when he lost consciousness, and reportedly was noted to be shaking during episode. Patient describes event as initial lightheadedness, followed by blurry vision, followed by loss of motor control in the upper or lower extremities. He states that he does not think he entirely lost consciousness during the episodes, however he is not certain. Episode lasted about 5 hours before he fully regained consciousness and returned to baseline of mental status. His friend who witnessed the event stated that he lost consciousness and fell back, and was making gargling sounds, eyes were open, fists were clenched and back was arched, which lasted about 10-15 minutes. He was "foaming at the mouth" during the episode. Afterwards, his entire body became flaccid and relaxed. Patient was unresponsive immediately after the episode. He reportedly started to wake up somewhat in the ambulance. His friend was not certain if he lost bowel/bladder control during episode, nor did he bite his tongue. Patient was initially unresponsive, and had improvement in mental status while in the ER. He also c/o chest pain in ER. He was found to have leukocytosis, lactic acidosis, elevated D-dimer, and elevated troponin. UDS was positive for methadone. Patient stated that he has had similar episodes of syncope over the past 1 year. He has had about 12 times over the past year. He did lose bladder control during the first such episode a year ago. Patient lives with his mom and stepfather. With previous episodes he has had coughing up blood after similar episodes, and also had some with this episode. He has had an EEG an [place] previously, however this was reportedly normal. Mother stated that they were uncertain if he was asking seizures. Past History Past Medical History: DVT, GERD, heart failure, pulmonary embolism, other (VILI (2019), Colon perf (2019) s/p resection and left colostomy, bilateral carotid pseudoaneurysm, a common central aneurysm, depression,anxiety, cholecystitis (2019)) Past Surgical History: Other (ACL repair, colon resection and colostomy creation) Social history: single, lives with family, full code, other (Alcohol two times per week, quit smoking, uses marijuana edibles currently. ). denies: prescription drug abuse, IV drug use Family history: other (Father from aortic aneurysm rupture and had EDS as well. ) Medications and Allergies Allergies Allergy/AdvReac Type Severity Reaction Status Date / Time No Known Allergies Allergy Unverified 05/09/20 22:11 Home Medications Medication Instructions Recorded Confirmed Last Taken Type Ascorbic Acid [Vitamin C] 500 mg PO TID 05/10/20 05/10/20 Unknown History Cholecalciferol Vit D3 [Vitamin D3 1 tab PO QDAY 05/10/20 05/10/20 Unknown History 1,000 UNIT TAB] Citalopram [celeXA] 20 mg PO QDAY 05/10/20 05/10/20 Unknown History Methadone [Dolophine] 1.5 tab PO BID 05/10/20 05/10/20 Unknown History Metoclopramide [Reglan TAB] 1 tab PO TID 05/10/20 05/10/20 Unknown History Mirtazapine [Remeron 15mg TAB] 15 mg PO QHS 05/10/20 05/10/20 Unknown History PANTOPRAZOLE SODIUM (nf) [Protonix 40 mg PO BID 05/10/20 05/10/20 Unknown History GRANULES] Pregabalin 150 mg PO BID 05/10/20 05/10/20 Unknown History carvediloL [Coreg] 3.125 mg PO BID 05/10/20 05/10/20 Unknown History Active Meds: Active Medications Acetaminophen (Tylenol) 650 mg PO Q4H PRN PRN Reason: Pain MILD(1-3)/Fever >100.5/NICOLE Ascorbic Acid (Vitamin C) 500 mg PO TID [facility] Carvedilol (Coreg) 3.125 mg PO BID [facility] Last Admin: 05/10/20 12:00 Dose: 3.125 mg Documented by: Cholecalciferol (Vitamin D3) 1,000 unit PO QDAY [facility] Citalopram Hydrobromide (Celexa) 20 mg PO QDAY [facility] Last Admin: 05/10/20 11:59 Dose: 20 mg Documented by: Dexamethasone (Decadron) 6 mg PO DAILY [facility] Stop: 05/21/20 09:59 Docusate Sodium (Colace) 100 mg PO BID [facility] Last Admin: 05/10/20 09:42 Dose: 100 mg Documented by: Enoxaparin Sodium (Enoxaparin) 40 mg SUB-Q QDAY@2200 [facility] Azithromycin 500 mg/ Sodium (Chloride) 250 mls @ 250 mls/hr IV Q24H [facility]; Protocol Ceftriaxone Sodium (Rocephin/Ns 1 Gm/50 Ml) 1 gm in 50 mls @ 100 mls/hr IV Q24HR [facility]; Protocol Stop: 05/15/20 09:59 Last Admin: 05/10/20 09:42 Dose: 100 mls/hr Documented by: Lorazepam (Ativan) 2 mg IV Q2HR PRN PRN Reason: Seizures Mirtazapine (Remeron) 15 mg PO QHS [facility] Ondansetron HCl (Zofran) 4 mg IV Q8H PRN PRN Reason: Nausea And Vomiting Oxycodone/Acetaminophen (Percocet 5/325) 1 tab PO Q6H PRN PRN Reason: Pain, Moderate (4-6) Last Admin: 05/10/20 09:42 Dose: 1 tab Documented by: Pantoprazole Sodium (Protonix) 40 mg PO BID [facility] Last Admin: 05/10/20 12:00 Dose: 40 mg Documented by: Pregabalin (Pregabalin) 150 mg PO BID [facility] Last Admin: 05/10/20 11:59 Dose: 150 mg Documented by: Senna (Senokot) 8.6 mg PO Q12HR [facility] Last Admin: 05/10/20 09:42 Dose: 8.6 mg Documented by: Sodium Chloride (Sodium Chloride Flush Syringe 10 Ml) 10 ml IV BID [facility] Last Admin: 05/10/20 09:43 Dose: 10 ml Documented by: Sodium Chloride (Sodium Chloride Flush Syringe 10 Ml) 10 ml IV PRN PRN PRN Reason: LINE FLUSH Review of Systems All systems: negative Cardiovascular: chest pain Neurological: change in mentation Physical Examination - Vital Signs Vital Signs: Vital Signs Temp Pulse Resp BP Pulse Ox 97.9 F 113 H 22 110/76 94 05/09/20 21:08 05/09/20 21:08 05/09/20 21:08 05/09/20 21:08 05/09/20 21:08 - Physical Exam Narrative exam: Patient is alert, awake, oriented x4, follows complex commands. No dysarthria or aphasia noted. PERRL, EOMI, VFF, tongue midline, bilaterally intact to LT, no facial weakness noted. 5/5 strength in all extremities. Bilaterally intact light touch. Bilaterally intact to FTN and HTS. Results - Laboratory Findings CBC and BMP: 05/09/20 21:19 05/10/20 04:36 Abnormal Lab Findings: Abnormal Labs 05/09/20 05/09/20 05/09/20 21:19 21:19 21:19 WBC 14.8 H RBC 5.78 H Hgb 15.9 H Hct 47.4 H MCV 82 L Seg Neutrophils % 81.0 H Seg Neutrophils # 12.0 H APTT 24.1 L D-Dimer Carbon Dioxide Glucose Lactic Acid 4.70 H* AST Lactate Dehydrogenase Total Creatine Kinase CK-MB (CK-2) Troponin T Triglycerides HDL Cholesterol 05/09/20 05/09/20 05/09/20 21:19 23:07 23:07 WBC RBC Hgb Hct MCV Seg Neutrophils % Seg Neutrophils # APTT D-Dimer Carbon Dioxide 20 L Glucose 130 H Lactic Acid 2.60 H* AST 44 H Lactate Dehydrogenase Total Creatine Kinase 687 H CK-MB (CK-2) 9.2 H Troponin T 0.085 H Triglycerides 310 H HDL Cholesterol 32 L 05/10/20 05/10/20 05/10/20 03:01 04:36 04:36 WBC RBC Hgb Hct MCV Seg Neutrophils % Seg Neutrophils # APTT D-Dimer 399.75 H Carbon Dioxide Glucose 118 H Lactic Acid AST Lactate Dehydrogenase 229 H Total Creatine Kinase CK-MB (CK-2) Troponin T 0.055 H D Triglycerides HDL Cholesterol Assessment and Plan Patient is a 24 y/o man w/ a h/o Augustine Danlos Syndrome, 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 According to the patient's clinical findings, it is likely that the patient has had a seizure. Clinical description of this event and previous event indicates likelihood that these events are seizures, as he appeared to have tonic and clonic phases, and also had loss of bladder control with a previous episode. Plan: 1. Seizure: - CT head: No acute abnormalities. - EEG unable to be performed at this facility at this time. Discussed with mother, who stated that he had an EEG in the past at [place], which was reportedly normal, however this was not during an episode. - CUS: no significant stenosis. - Discussed doing MRI brain with patient and his mother, however they stated that he had had one done at [place] previously for workup of these episodes, which was reportedly normal, and therefore they would not want to have an MRI done at this time. - Discussed with patient and his mother regarding starting keppra. Discussed risks/benefits, and patient agreed to starting keppra. - Start patient on Keppra 500mg BID. - Discussed with patient and his mother regarding no driving until cleared by DMV/DPS. Patient understood and accepted this. Further discussed seizure precautions. - If patient has a seizure lasting >2 minutes, recommend giving ativan 1mg IV stat. If seizure does not resolve within 2 minutes, can repeat x1. Please call primary team and neurology stat if patient has a seizure. - Will sign off, as I am not covering neurology service over the weekend. Please consult neurologist covering the service over the weekend for further neurologic monitoring and management. If in-house neurologist is not available, recommend transferring patient to facility where neurology service is available for further management. - Recommend follow up with neurology in 3-4 weeks as outpatient. Mother stated that he had follow up imaging for cerebral aneurysms in February 2020, and these were stable at that time. Therefore they did not want MRA done at this time. Thank you for allowing me to take part in the care of this patient. Trino Lara MD Neurology This clinical encounter was provided via live telemedicine platform. Consultative service was provided for neurology to support local providers. The Acute Teleneurology team should be contacted with any neurologic worsening or clinical changes, new test results, or new patient history that is reported to or discovered by the local team following completion of the teleneurology consultation, specifically that which has the potential to impact the consultative recommendations. Patient/Family was informed the Neurology Consult would happen via TeleHealth consult by way of interactive audio and video telecommunications and consented to receiving care in this manner. Due to the potential for life-threatening deterioration due to underlying neurologic illness, and limited resources available for patient care, telemedicine was used as means of patient care. Telemedicine consultation is limited in the extent of physical exam that can be virtually provided. Time spent evaluating patient includes time for face to face visit via telemedicine, review of medical records, imaging studies and discussion of findings with providers, the patient and/or family.
--- NOTE | 2020-05-10 15:58 | Consultation ---
History of Present Illness - Reason for Consult Consult date: 05/10/20 COVID PUI Requesting physician: KATARINA WILLSON III - History of Present Illness The patient is a 24-year-old male with Augustine-Danlos syndrome came into the emergency room yesterday with unresponsiveness. Apparently, his friends noticed that he was having some shaking. Patient was also having chest pain. No fever. Labs showed WBC 14.8, d-dimer 339, total CK 637, troponin 0 0.08, procalcitonin 0.06 urine toxicology was positive for urine methadone. CRP 1.0. Ferritin 96.9. COVID-[address] chest showed multiple bilateral pulmonary opacities most likely representing multifocal pneumonia. In addition, a 7 cm cystic mass was noted in the right lower lobe region representing either loculated effusion or bronchogenic cyst. No evidence of PE. CT abdomen and pelvis was unremarkable. Review of Systems: General: no fevers,chills or rigors HEENT: no new visual disturbance Respiratory: No cough, sputum, hemoptysis or shortness of breath Cardiovascular: No chest pain, syncope Gastrointestinal: No nausea, vomiting or diarrhea Genitourinary: No dysuria or hematuria Musculoskeletal: No new or worsening neck pain or back pain Neurologic: No headaches Hematologic: No easy bruising or bleeding Endocrine: No night sweats or acute weight loss Skin: negative for rash, jaundice Psychiatric: No suicidal or homicidal ideation Past History Past Medical History: DVT, GERD, heart failure, pulmonary embolism, other (VILI (2019), Colon perf (2019) s/p resection and left colostomy, bilateral carotid pseudoaneurysm, a common central aneurysm, depression,anxiety, cholecystitis (2019)) Past Surgical History: Other (ACL repair, colon resection and colostomy creation) Social history: single, lives with family, full code, other (Alcohol two times per week, quit smoking, uses marijuana edibles currently. ). denies: prescription drug abuse, IV drug use Family history: other (Father from aortic aneurysm rupture and had EDS as well. ) Medications and Allergies Allergies Allergy/AdvReac Type Severity Reaction Status Date / Time No Known Allergies Allergy Unverified 05/09/20 22:11 Home Medications Medication Instructions Recorded Confirmed Last Taken Type Ascorbic Acid [Vitamin C] 500 mg PO TID 05/10/20 05/10/20 Unknown History Cholecalciferol Vit D3 [Vitamin D3 1 tab PO QDAY 05/10/20 05/10/20 Unknown History 1,000 UNIT TAB] Citalopram [celeXA] 20 mg PO QDAY 05/10/20 05/10/20 Unknown History Methadone [Dolophine] 1.5 tab PO BID 05/10/20 05/10/20 Unknown History Metoclopramide [Reglan TAB] 1 tab PO TID 05/10/20 05/10/20 Unknown History Mirtazapine [Remeron 15mg TAB] 15 mg PO QHS 05/10/20 05/10/20 Unknown History PANTOPRAZOLE SODIUM (nf) [Protonix 40 mg PO BID 05/10/20 05/10/20 Unknown History GRANULES] Pregabalin 150 mg PO BID 05/10/20 05/10/20 Unknown History carvediloL [Coreg] 3.125 mg PO BID 05/10/20 05/10/20 Unknown History Active Meds: Active Medications Acetaminophen (Tylenol) 650 mg PO Q4H PRN PRN Reason: Pain MILD(1-3)/Fever >100.5/NICOLE Ascorbic Acid (Vitamin C) 500 mg PO TID [facility] Carvedilol (Coreg) 3.125 mg PO BID [facility] Last Admin: 05/10/20 12:00 Dose: 3.125 mg Documented by: Cholecalciferol (Vitamin D3) 1,000 unit PO QDAY [facility] Citalopram Hydrobromide (Celexa) 20 mg PO QDAY [facility] Last Admin: 05/10/20 11:59 Dose: 20 mg Documented by: Docusate Sodium (Colace) 100 mg PO BID [facility] Last Admin: 05/10/20 09:42 Dose: 100 mg Documented by: Enoxaparin Sodium (Enoxaparin) 40 mg SUB-Q QDAY@2200 [facility] Azithromycin 500 mg/ Sodium (Chloride) 250 mls @ 250 mls/hr IV Q24H [facility]; Protocol Ceftriaxone Sodium (Rocephin/Ns 1 Gm/50 Ml) 1 gm in 50 mls @ 100 mls/hr IV Q24HR [facility]; Protocol Stop: 05/15/20 09:59 Last Admin: 05/10/20 09:42 Dose: 100 mls/hr Documented by: Lorazepam (Ativan) 2 mg IV Q2HR PRN PRN Reason: Seizures Mirtazapine (Remeron) 15 mg PO QHS [facility] Ondansetron HCl (Zofran) 4 mg IV Q8H PRN PRN Reason: Nausea And Vomiting Oxycodone/Acetaminophen (Percocet 5/325) 1 tab PO Q6H PRN PRN Reason: Pain, Moderate (4-6) Last Admin: 05/10/20 09:42 Dose: 1 tab Documented by: Pantoprazole Sodium (Protonix) 40 mg PO BID [facility] Last Admin: 05/10/20 12:00 Dose: 40 mg Documented by: Pregabalin (Pregabalin) 150 mg PO BID [facility] Last Admin: 05/10/20 11:59 Dose: 150 mg Documented by: Senna (Senokot) 8.6 mg PO Q12HR [facility] Last Admin: 05/10/20 09:42 Dose: 8.6 mg Documented by: Sodium Chloride (Sodium Chloride Flush Syringe 10 Ml) 10 ml IV BID [facility] Last Admin: 05/10/20 09:43 Dose: 10 ml Documented by: Sodium Chloride (Sodium Chloride Flush Syringe 10 Ml) 10 ml IV PRN PRN PRN Reason: LINE FLUSH Physical Examination - Physical Exam Narrative exam: Physical Exam: Constitutional: Alert, cooperative. No acute distress Head, Ears, Nose: Normocephalic, atraumatic. External ears, nose normal Eyes: Conjunctivae/corneas clear. No icterus. No ptosis. Neck: Supple, no meningeal signs Cardiovascular: S1, S2 normal. Respiratory: Good air entry, clear to auscultation bilaterally GI: Soft, non-tender; bowel sounds normal. No peritoneal signs Musculoskeletal: No pedal edema, no cyanosis. Skin: No rash or abscess Hem/Lymphatic: No palpable cervical or supraclavicular nodes. No lymphangitis Psych: Mood ok. Affect normal Neurological: Awake, alert, oriented. No gross abnormality - Constitutional Vitals: Vital Signs Temp Pulse Resp BP Pulse Ox 98.8 F 95 H 18 116/97 98 05/10/20 10:10 05/10/20 12:00 05/10/20 10:10 05/10/20 12:00 05/10/20 10:10 Temperature -Last 24 Hours Temperature 98.8 F Temperature 97.9 F Temperature 98.1 F Temperature 98.3 F Temperature 97.9 F Results - Labs CBC & Chem 7: 05/09/20 21:19 05/10/20 04:36 Labs: Abnormal lab results 05/09/20 05/09/20 05/09/20 Range/Units 21:19 21:19 21:19 WBC 14.8 H (4.5-11.0) K/mm3 RBC 5.78 H (3.65-5.03) M/mm3 Hgb 15.9 H (11.8-15.2) gm/dl Hct 47.4 H (35.5-45.6) % MCV 82 L (84-94) fl Seg Neutrophils % 81.0 H (40.0-70.0) % Seg Neutrophils # 12.0 H (1.8-7.7) K/mm3 APTT 24.1 L (24.2-36.6) Sec. D-Dimer (0-234) ng/mlDDU Carbon Dioxide (22-30) mmol/L Glucose (75-100) mg/dL Lactic Acid 4.70 H* (0.7-2.0) mmol/L AST (5-40) units/L Lactate Dehydrogenase (91-180) units/L Total Creatine Kinase (55-170) units/L CK-MB (CK-2) (0.0-4.0) ng/mL Troponin T (0.00-0.029) ng/mL Triglycerides (2-149) mg/dL HDL Cholesterol (40-59) mg/dL 05/09/20 05/09/20 05/09/20 Range/Units 21:19 23:07 23:07 WBC (4.5-11.0) K/mm3 RBC (3.65-5.03) M/mm3 Hgb (11.8-15.2) gm/dl Hct (35.5-45.6) % MCV (84-94) fl Seg Neutrophils % (40.0-70.0) % Seg Neutrophils # (1.8-7.7) K/mm3 APTT (24.2-36.6) Sec. D-Dimer (0-234) ng/mlDDU Carbon Dioxide 20 L (22-30) mmol/L Glucose 130 H (75-100) mg/dL Lactic Acid 2.60 H* (0.7-2.0) mmol/L AST 44 H (5-40) units/L Lactate Dehydrogenase (91-180) units/L Total Creatine Kinase 687 H (55-170) units/L CK-MB (CK-2) 9.2 H (0.0-4.0) ng/mL Troponin T 0.085 H (0.00-0.029) ng/mL Triglycerides 310 H (2-149) mg/dL HDL Cholesterol 32 L (40-59) mg/dL 05/10/20 05/10/20 05/10/20 Range/Units 03:01 04:36 04:36 WBC (4.5-11.0) K/mm3 RBC (3.65-5.03) M/mm3 Hgb (11.8-15.2) gm/dl Hct (35.5-45.6) % MCV (84-94) fl Seg Neutrophils % (40.0-70.0) % Seg Neutrophils # (1.8-7.7) K/mm3 APTT (24.2-36.6) Sec. D-Dimer 399.75 H (0-234) ng/mlDDU Carbon Dioxide (22-30) mmol/L Glucose 118 H (75-100) mg/dL Lactic Acid (0.7-2.0) mmol/L AST (5-40) units/L Lactate Dehydrogenase 229 H (91-180) units/L Total Creatine Kinase (55-170) units/L CK-MB (CK-2) (0.0-4.0) ng/mL Troponin T 0.055 H D (0.00-0.029) ng/mL Triglycerides (2-149) mg/dL HDL Cholesterol (40-59) mg/dL - Imaging and Cardiology Chest x-ray: report reviewed, image reviewed (no pneumonia) CT scan - chest: report reviewed, image reviewed (CT chest showed multiple bilateral pulmonary opacities most likely representing multifocal pneumonia. In addition, a 7 cm cystic mass was noted in the right lower lobe region representing either loculated effusion or bronchogenic cyst. No evidence of PE.) Assessment and Plan A/P: 24-year-old male with Augustine-Danlos syndrome came into the emergency room yesterday with unresponsiveness. Apparently, his friends noticed that he was having some shaking: #Pneumonia versus pneumonitis: COVID negative. Patient possibly may have aspirated. No fevers prior to this episode, remains afebrile here, remains on room air. Procalcitonin is also low. Leukocytosis could be reactive to the ?seizure episode. Recs: Abx not needed, orders d/ros COVID PCR is negative Cyndi Rivas MD, FACP [facility] C: [phone] O: [phone] F: [phone]
[2020-05-10] MEDS: ONDANSETRON 4 MG/2 ML INJ IV PRN ×2 (16:35→23:13)
[2020-05-10] MEDS: ASCORBIC ACID 500 MG TAB PO SCH ×2 (17:27→22:32)
[2020-05-10] MEDS: HYDROmorphone 1 MG/1 ML INJ IM PRN (17:27)
--- NOTE | 2020-05-10 18:08 | Event Note ---
Date: 05/10/[address] Hao Kemp [phone] from [facility] called and requested to transfer the patient to his service At [facility]. I called the transfer center discussed with transfer center nurse Ms. Mir, also discussed with Dr. Esposito And receiving hospitalist Dr.Katakam Kohler [phone] the patient's conditi on treatment plan and the cook helper request To [facility] in detail, no beds available at this point , however they have accepted the patient for admission pending availability of the beds. The transfer center will call back when the bedside available, I conveyed this message to the patient and the patient's nurse
[2020-05-10] MEDS ORDERED: AZITHROMYCIN 500 MG in SODIUM CHLORIDE 0.9% 250ML 250 ML IV SCH (22:00)
[2020-05-10] MEDS ORDERED: MIRTAZAPINE 15 MG TAB PO SCH (22:00)
[2020-05-10] MEDS ORDERED: ENOXAPARIN 40 MG/0.4 ML INJ SUB-Q SCH (22:00)
[2020-05-10] MEDS: levETIRAcetam 500 MG TAB PO SCH (22:32)
[2020-05-10] MEDS ORDERED: ONDANSETRON 4 MG/2 ML INJ IV PRN (22:38)
[2020-05-11] MEDS: HYDROmorphone 1 MG/1 ML INJ IM PRN (09:57)
[2020-05-11] MEDS ORDERED: CHOLECALCIFEROL (VIT D3) 1000 UNIT (25 mcg) TAB PO SCH (10:00)
[2020-05-11] MEDS ORDERED: DEXAMETHASONE 4 MG TAB PO SCH (10:00)
[2020-05-11] MEDS ORDERED: cefTRIAXone/NS 1 GM/50 ML 1 GM/50 ML BAG IV SCH (10:00)
[2020-05-11] MEDS ORDERED: AZITHROMYCIN 500 MG in SODIUM CHLORIDE 0.9% 250ML 250 ML IV SCH (10:00)
[2020-05-11] MEDS: PANTOPRAZOLE 40 MG TAB PO SCH (10:02)
[2020-05-11] MEDS: PREGABALIN 75 MG CAP PO SCH (10:03)
[2020-05-11] MEDS: DOCUSATE SODIUM 100 MG CAP PO SCH (10:04)
[2020-05-11] MEDS: SENNOSIDES 8.6 MG TAB PO SCH (10:04)
[2020-05-11] MEDS: CITALOPRAM 20 MG TAB PO SCH (10:04)
[2020-05-11] MEDS: levETIRAcetam 500 MG TAB PO SCH (10:04)
[2020-05-11] MEDS: ASCORBIC ACID 500 MG TAB PO SCH ×2 (10:04→16:05)
[2020-05-11 10:17] LABS: Eosinophils % (Auto) 0.3 % (0.0-4.3); Hemoglobin 13.3 gm/dl (11.8-15.2); Lymphocytes % (Auto) 17.7 % (13.4-35.0); Mean Corpuscular HGB Conc 33 % (32-34); Mean Corpuscular Volume 83 fl (84-94); Monocytes # (Auto) 0.7 K/mm3 (0.0-0.8); Monocytes % (Auto) 6.1 % (0.0-7.3); Platelet Count 221 K/mm3 (140-440); Red Blood Count 4.84 M/mm3 (3.65-5.03); Red Cell Distribution Width 14.1 % (13.2-15.2)
[2020-05-11 10:18] LABS: Hematocrit 39.9 % (35.5-45.6)
[2020-05-11 10:19] LABS: Basophils % (Auto) 0.3 % (0.0-1.8)
[2020-05-11] MEDS: carvediloL 3.125 MG TAB PO SCH (10:19)
[2020-05-11 10:24] LABS: BUN/Creatinine Ratio 20; Blood Urea Nitrogen 18 mg/dL (9-20); Calcium 9.6 mg/dL (8.4-10.2); Hemolysis Index 7
--- NOTE | 2020-05-11 11:06 | Event Note ---
Date: 05/11/20 Remains on room air, no fever. WBC also has downtrended. Remains off abx. CRP and procal both low. ID will sign off. Please call with questions.
--- NOTE | 2020-05-11 12:16 | Discharge Summary ---
Providers - Providers Date of Admission: 05/10/20 05:32 Date of discharge: 05/11/20 Attending physician: JAQUAN SANDOVAL 05/10/20 03:22 Consult to Physician [CONS] Routine Comment: Consulting Provider: CHARITY GOODMAN Physician Instructions: Reason For Exam: 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 Of note patient admits to current weekly EtOH use (liquor 1-2 times per week), being a former smoker (1 to 2 cigarettes/day x8 years), and former daily marijuana and vape user. Patient states he was hanging out with some friends and he became unresponsive and the friend stated he appeared to be shaking. However the patient states these episodes of unresponsiveness and fainting have been ongoing for about 2 years. Patient states he has bilateral chest discomfort (upper abdomen, lower thoracic region) with inspiration described as a pressure (left 7 out of 10, right 4 out of 10). Patient denies any recent chills/fevers, shortness of breath, weight loss, chronic headache, palpitations, or nausea/vomiting/diarrhea. He states he had one episode of hemoptysis last night. Patient denies any recent international travel, known exposure to COVID-19, or any recent sick contacts. He does state that he recently traveled to [place]. Work-up in the emergency department included a CT head, chest x-ray, CTA abd/ pelvis, and CTA chest. His CTH was negative, CXR showed a large mass in the right inferior lung, small right pleural effusion, bilateral patchy upper lobe pulmonary opacities, CTA abdomen/pelvis was negative, CTA chest showed bilateral pleural effusion (right> left), fluid-filled cyst in the right lower lobe measuring 7cm (benign, possible bronchogenic cyst or loculated effusion) and multiple small bilateral pulmonary opacities. His lab work revealed leukocytosis (14.8), lactic acidosis (2.6), elevated troponin (0.85), elevated d-dimer (399), elevated LDH (229), and CRP 1. Urinalysis and UDS have been negative. He will be admitted to the hospitalist service for syncope work-up, COVID PUI, and possible new onset seizures. Infectious disease, neurology have been consulted. 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 Covid negative Patient being transferred to [place] at patient's request (1) Pneumonia Current Visit: Yes Status: Acute Qualifiers: Pneumonia type: due to unspecified organism Laterality: bilateral Lung location: unspecified part of lung Qualified Code(s): J18.9 - Pneumonia, unspecified organism Plan to address problem: -IV antibiotic -Infectious disease consult -Pulmonary hygiene -Supplemental oxygenation as needed (2) Suspected COVID-19 virus infection Current Visit: Yes Status: Acute Plan to address problem: -COVID PCR NEGATIVE (3) Syncope Current Visit: Yes Status: Acute Qualifiers: Syncope type: unspecified Qualified Code(s): R55 - Syncope and collapse Plan to address problem: -Bilateral carotid ultrasound pending -Echocardiogram pending -Orthostatic vital signs -Fall precautions (4) Seizure-like activity Current Visit: Yes Status: Acute Plan to address problem: -Neurology consult -Seizure precaution -Ativan as needed -Supportive care (5) Elevated troponin I level Current Visit: Yes Status: Acute Plan to address problem: -Serial cardiac enzymes -EKG -Echocardiogram pending -Supportive care (6) EDS (Augustine-Danlos syndrome) Current Visit: Yes Status: Acute Plan to address problem: -Supportive care -Restarted home medication (7) GERD (gastroesophageal reflux disease) Current Visit: Yes Status: Acute Plan to address problem: -Restarted home medication (8) Depression Current Visit: Yes Status: Acute Plan to address problem: -Restarted home medication (9) Full code status Current Visit: Yes Status: Acute Disposition: DC/TX-70 ANOTHER TYPE HLTHCARE - Discharge Diagnoses (1) Pneumonia Status: Acute Qualifiers: Pneumonia type: due to unspecified organism Laterality: bilateral Lung location: unspecified part of lung Qualified Code(s): J18.9 - Pneumonia, unspecified organism (2) EDS (Augustine-Danlos syndrome) Status: Acute (3) Suspected COVID-19 virus infection Status: Acute Comment: nEGATIVE Core Measure Documentation - Palliative Care Palliative Care/ Comfort Measures: Not Applicable - Core Measures Any of the following diagnoses?: none Exam - Constitutional Vitals: Temp Pulse Resp BP Pulse Ox 98.1 F 107 H 18 113/72 96 05/11/20 04:29 05/11/20 10:19 05/11/20 04:29 05/11/20 10:19 05/11/20 08:57 General appearance: Present: no acute distress, well-nourished - EENT Eyes: Present: PERRL ENT: hearing intact, clear oral mucosa - Neck Neck: Present: supple, normal ROM - Respiratory Respiratory effort: normal Respiratory: bilateral: CTA - Cardiovascular Heart Sounds: Present: S1 & S2. Absent: rub, click - Extremities Extremities: pulses symmetrical, No edema Peripheral Pulses: within normal limits - Abdominal General gastrointestinal: Present: soft, non-tender, non-distended, normal bowel sounds Male genitourinary: Present: normal - Integumentary Integumentary: Present: clear, warm, dry - Musculoskeletal Musculoskeletal: gait normal, strength equal bilaterally - Psychiatric Psychiatric: appropriate mood/affect, intact judgment & insight - Neurologic Neurologic: CNII-XII intact, moves all extremities Plan Activity: no restrictions Diet: regular Follow up with: PRIMARY CARE, [Primary Care Provider] - 3-5 Days
[2020-05-11 12:48] VITALS: BP 118/51
== END 2020-05-11 17:23 | disposition other institution (70) ==
LOC: ED 20:51 → 3A 05-10 05:32
PROVIDERS: ADMIT Internal Medicine Geriatric Medicine; ATTEND Internal Medicine
DX: J18.9 Pneumonia, unspecified organism (principal); Z20.828 Contact with and (suspected) exposure to other viral communicable diseases; I50.9 Heart failure, unspecified; K21.9 Gastro-esophageal reflux disease without esophagitis; R56.9 Unspecified convulsions; R07.9 Chest pain, unspecified; E87.2 Acidosis; R55 Syncope and collapse; R74.8 Abnormal levels of other serum enzymes; F41.9 Anxiety disorder, unspecified; F32.9 Major depressive disorder, single episode, unspecified; Z86.711 Personal history of pulmonary embolism; Z86.718 Personal history of other venous thrombosis and embolism; Z90.49 Acquired absence of other specified parts of digestive tract; Z87.891 Personal history of nicotine dependence
CPT/HCPCS: 36415; 70450; 71045; 71275; 74174; 80048; 80053; 80061; 80307; 81001; 82140; 82550; 82553; 82728; 82947; 83615; 84145; 84484; 85025; 85379; 85610; 85730; 86140; 93005; 93306; 93880; 96361; 96365; 96367; 96375; 96376; 99291; 99292; G0378; J0456; J0692; J0696; J1100; J1170; J2405; J3010; J7030; J7050; Q9967; U0003; 80320; 99281; G0480